=== PATIENT | female | born 1970 | race Caucasian/White ===

== ENCOUNTER 2024-01-23 19:41 | Emergency (ER) | payer OTHER ==
[2024-01-23] MEDS ORDERED: ONDANSETRON 4 MG/2 ML VIAL ONE (21:09)
[2024-01-23] MEDS ORDERED: NA CHLORIDE 0.9% 1,000 ML ONE ×2 (21:10→23:23)
[2024-01-23 21:31] LABS: Absolute Basophils 0.1 K/uL (0-0.5); Absolute Lymphocytes (CBC) 1.9 K/uL (0.7-4.9); Absolute Monocytes 1.1 K/uL (0.1-1.3); Absolute Neutrophil 7.8 K/uL (1.8-8.0); Basophils % 0.5 % (0-1.3); Eosinophils % 0.2 % (0-4.4); Hemoglobin 15.7 g/dL (12.0-15.0); Lymphocytes % 17.8 % (15.3-44.8); MCH 32.9 pg (27.0-35.0); MCHC 34.9 g/dL (32.0-36.0); MCV 94.1 fL (80-100); MPV 9.3 fL (7.6-11.3); Monocytes % 10.1 % (3.3-12.3); Neutrophils % 71.4 % (41.7-73.7); Platelets 308 thou/uL (152-406); RBC Red Blood Cell Count 4.78 M/uL (3.86-4.86); Red Cell Distribution Width 12.5 % (12.1-15.2)
[2024-01-23 22:02] LABS: Albumin 3.9 g/dL (3.4-5.0); Albumin/Globulin Ratio 1.1 (1.1-1.8); Bilirubin Total 0.9 mg/dL (0.2-1.0); Globulin 3.5 g/dL (2.3-3.5); Protein, Total 7.4 g/dL (6.4-8.2)
[2024-01-23] MEDS ORDERED: PROMETHAZINE INJ 25 MG/ML AMP ONE (22:17)
[2024-01-23] MEDS ORDERED: KCL 20 MEQ/100 mL IVPB 100 ML IV ONE (23:23)
[2024-01-24 01:00] LABS: Specific Gravity 1.016 (1.005-1.030)
[2024-01-24 01:05] LABS: Specific Gravity 1.016 (1.005-1.030); Urine Bacteria 20-50 /HPF (<20); Urine Bilirubin NEGATIVE (Negative); Urine Blood 3+ (OVER) (Negative); Urine Clarity Extremely Turbid (Clear); Urine Color Light-Yellow (Yellow); Urine Culture Reflex Order NOT NEEDED; Urine Glucose NEGATIVE (Negative); Urine Ketones 2+ (Negative); Urine Microscopic Reflex YN ORDER UMIC; Urine Mucus 4+ /HPF (None Seen); Urine Nitrite NEGATIVE (Negative); Urine Protein NEGATIVE (Negative); Urine RBC >50 /HPF (None Seen); Urine Urobilinogen Normal (Normal); Urine pH 5.5 (5.0-7.0)
--- NOTE | 2024-01-24 01:30 | EDPHYS ---
Physician Documentation [facility] Name: Madelyn Sellers Age: 53 yrs Sex: Female : 1970 Arrival Date: 01/23/2024 Time: 19:41 Bed 13 Private MD: ED Physician Carol Valera HPI: 01/22 21:59 This 53 yrs old Female presents to ER via Ambulatory with complaints of Abdominal Pain, sp3 Vomiting. 21:59 53-year-old female with no significant past medical history presents with chief sp3 complaint of vomiting and epigastric abdominal pain for 4 days. Patient states her p.o. intake has been significantly less. She was seen at [facility] ER yesterday where they performed laboratory values and a CT scan of the abdomen pelvis which demonstrated no significant findings. Patient was discharged home on dicyclomine and ondansetron ODT with diagnosis gastroenteritis. Her symptoms are not improving and she feels like she is getting worse with inability to tolerate p.o. and decreased urine output. She is concerned about dehydration and presents here for further evaluation and treatment. Review of systems negative for fever, URI symptoms, chest pain, shortness of breath, back pain, rash, syncope, near syncope, or any other signs or symptoms on ROS at this time.. 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 - Infectious Disease History:: Denies. - Social history:: Smoking status: Patient/guardian denies using tobacco, Patient uses alcohol, but reports only rare drinking. ROS: 22:01 Constitutional: Negative for fever, chills, and weight loss, Eyes: Negative for injury, sp3 pain, redness, and discharge, Neck: Negative for injury, pain, and swelling, Cardiovascular: Negative for chest pain, palpitations, and edema, Respiratory: Negative for shortness of breath, cough, wheezing, and pleuritic chest pain, Back: Negative for injury and pain, MS/Extremity: Negative for injury and deformity, Skin: Negative for injury, rash, and discoloration, Neuro: Negative for headache, weakness, numbness, tingling, and seizure, Psych: Negative for depression, anxiety, suicide ideation, homicidal ideation, and hallucinations, Allergy/Immunology: Negative for hives, rash, and allergies, Endocrine: Negative for neck swelling, polydipsia, polyuria, polyphagia, and marked weight changes, 22:01 All other systems are negative, Exam: 22:01 Constitutional: This is a well developed, well nourished patient who is awake, alert, sp3 and in no acute distress. Head/Face: Normocephalic, atraumatic. Eyes: Pupils equal round and reactive to light, extra-ocular motions intact. Lids and lashes normal. Conjunctiva and sclera are non-icteric and not injected. Cornea within normal limits. Periorbital areas with no swelling, redness, or edema. Neck: Trachea midline, no thyromegaly or masses palpated, and no cervical lymphadenopathy. Supple, full range of motion without nuchal rigidity, or vertebral point tenderness. No Meningismus. Chest/axilla: Normal chest wall appearance and motion. Nontender with no deformity. No lesions are appreciated. Cardiovascular: Regular rate and rhythm with a normal S1 and S2. No gallops, murmurs, or rubs. Normal PMI, no JVD. No pulse deficits. Respiratory: Lungs have equal breath sounds bilaterally, clear to auscultation and percussion. No rales, rhonchi or wheezes noted. No increased work of breathing, no retractions or nasal flaring. Back: No spinal tenderness. No costovertebral tenderness. Full range of motion. Skin: Warm, dry with normal turgor. Normal color with no rashes, no lesions, and no evidence of cellulitis. MS/ Extremity: Pulses equal, no cyanosis. Neurovascular intact. Full, normal range of motion. Neuro: Awake and alert, GCS 15, oriented to person, place, time, and situation. Cranial nerves II-XII grossly intact. Motor strength 5/5 in all extremities. Sensory grossly intact. Cerebellar exam normal. Normal gait. Psych: Awake, alert, with orientation to person, place and time. Behavior, mood, and affect are within normal limits. 22:01 ENT: Dry mucous membranes noted. 22:01 Abdomen/GI: Mild diffuse tenderness to palpation without peritoneal signs, rebound or guarding. Symptoms are more nausea and vomiting and abdominal pain on exam., Vital Signs: 19:59 Weight 128.37 kg; Height 5 ft. 8 in. ; Pain 10/10; tm6 19:59 BP 130 / 84; Pulse 69; Resp 19; Pulse Ox 98% on R/A; MAP 98 mmHg; tm6 21:21 Temp 98.7(O); jb4 23:00 BP 136 / 62; Pulse 59; Resp 16; Pulse Ox 100% ; jb4 10 00:00 BP 131 / 73; Pulse 63; Resp 16; Pulse Ox 97% on R/A; jb4 02:56 BP 129 / 69; Pulse 65; Resp 18; Temp 98(O); Pulse Ox 94% on R/A; rg5 01/22 19:59 Body Mass Index 43.03 (128.37 kg, 172.72 cm) tm6 01/22 19:59 Pain Scale: Adult 6 MDM: 01/22 20:42 Patient medically screened. 3 22:01 Data reviewed: vital signs, nurses notes, old medical records, lab test result(s). ED 3 course: 53-year-old female with gastroenteritis with second ER visit for her symptoms. CT scan yesterday was negative. Today we will administer supportive care with IV fluids and antiemetics including more Zofran as well as Phenergan IV. Repeat laboratory values pending including lactate. I have offered potential transfer to [place] given no admission capability here due to capacity. We will elect to see how today's medications make patient feel as well as recheck her labs. Disposition pending workup and patient course.. 01/23 01:28 ED course: Patient continues to have intractable vomiting. We will transfer her to [address] for further workup. Compazine will also be given here in the ED.. 01/22 20:43 Order name: CBC with Diff; Complete Time: 22:57 3 01/22 20:43 Order name: CMP; Complete Time: 22:57 3 01/22 20:43 Order name: Lipase; Complete Time: 22:57 3 01/22 20:43 Order name: Urinalysis w/ reflexes; Complete Time: 01:06 3 01/22 20:43 Order name: Test, Urine; Complete Time: 01:06 sp3 01/22 21:50 Order name: Lactate w/ 2H reflex if indic.; Complete Time: 00:33 sp3 01/22 20:43 Order name: IV Saline Lock; Complete Time: 21:15 sp3 01/22 20:43 Order name: Labs collected and sent; Complete Time: 21:15 sp3 01/22 20:43 Order name: Vital Signs; Complete Time: 21:19 sp3 01/22 20:43 Order name: Misc. Order: Temperature; Complete Time: 21:19 sp3 01/22 22:58 Order name: PO challenge; Complete Time: 23:29 sp3 Administered Medications: 01/22 21:20 Drug: NS 0.9% IV 1000 ml IV at 1 bolus Per protocol; 1000 mL bolus Route: IV; Rate: 1 jb4 bolus; Site: right antecubital; 01/23 02:00 Follow up: IV Status: Completed infusion; IV Intake: 1000ml rg5 01/22 21:20 Drug: Ondansetron IVP 4 mg IVP once; over 2 minutes Route: IVP; Site: right antecubital;jb4 01/23 03:00 Follow up: Response: No adverse reaction [facility] 01/22 22:23 Drug: Promethazine IVP 12.5 mg IVP once Route: IVP; Site: right antecubital; jb4 01/23 03:00 Follow up: Response: No adverse reaction 5 01/22 23:30 Drug: NS 0.9% IV 1000 ml IV at 1 bolus Per protocol; 1000 mL bolus Route: IV; Rate: 1 jb4 bolus; Site: right antecubital; 01/23 02:00 Follow up: IV Status: Completed infusion; IV Intake: 1000ml rg5 01/22 23:30 Not Given (Other Intervention Used): potassiumeffervescent tablet 50 meq PO once; jb4 dissolve in 4 ounces of water or juice 23:30 Drug: Potassium Chloride IV 20 mEq IV at calculated rate once; administer over 1-2 jb4 hours Route: IV; Rate: calculated rate; Site: right antecubital; 01/23 02:00 Follow up: IV Status: Completed infusion; IV Intake: 100ml rg5 01:34 Not Given (Not in pyxis): [id number] mg IVP once sp3 01:37 Drug: metoCLOPramide IVP 10 mg IVP once; over 1 to 2 minutes Route: IVP; Site: right jb4 antecubital; 03:00 Follow up: Response: No adverse reaction rg5 Disposition Summary: 01/24/24 01:30 Transfer Ordered Notes: Transfer Location: [facility] sp3 Reason: Higher level of care sp3 Condition: Stable sp3 Problem: an acute exacerbation sp3 Symptoms: have worsened sp3 Accepting Physician: [facility] Hospitalist(01/24/24 03:29) rg5 Diagnosis - Intractable vomiting, dehydration sp3 Forms: - Medication Reconciliation Form sp3 - SBAR form sp3 Signatures: Dispatcher [employer] EDMS Cordell John RN RN jb4 Carol Valera MD MD sp3 Elif Osman RN RN tm6 Herman Marshall RN RN rg5 Corrections: (The following items were deleted from the chart) 01/22 20:44 20:44 CBC+H.LAB.BRZ ordered. EDMS EDMS 20:44 20:44 COMPREHENSIVE METABOLIC PANEL+C.LAB.BRZ ordered. EDMS EDMS 20:44 20:44 LIPASE+C.LAB.BRZ ordered. EDMS EDMS 20:44 20:44 Urinalysis+U.LAB.BRZ ordered. EDMS EDMS 20:44 20:44 Test, Urine+UC.LAB.BRZ ordered. EDMS EDMS 21:55 20:44 Abdomen Pelvis W Con+CT.RAD.BRZ ordered. EDMS EDMS 01/23 03:29 01:30 [facility] Hospitalist sp3 rg5
--- NOTE | 2024-01-24 01:30 | ER ---
Nurse's Notes [facility] Name: Madelyn Sellers Age: 53 yrs Sex: Female : 1970 Arrival Date: 01/23/2024 Time: 19:41 Bed 13 Private MD: Diagnosis: Intractable vomiting, dehydration Presentation: 01/22 19:59 Chief complaint: Patient states: Monday started having nausea and vomiting, tm6 epigastric pain. Went to [facility] on Monday, they said I had gastritis. They gave me zofran and dicyclomine. Zofran has not helped, I keep throwing up. Not been able to eat or keep anything down. I also feel like I'm having heart palpitations. Coronavirus screen: Client denies travel out of the [place] in the last 14 days. Ebola Screen: Patient negative for fever greater than or equal to 101.5 degrees Fahrenheit, and additional compatible Ebola Virus Disease symptoms Patient denies exposure to infectious person. Patient denies travel to an Ebola-affected area in the 21 days before illness onset. No symptoms or risks identified at this time. Initial Sepsis Screen: Does the patient meet any 2 criteria? No. Patient's initial sepsis screen is negative. Does the patient have a suspected source of infection? No. Patient's initial sepsis screen is negative. Risk Assessment: Do you want to hurt yourself or someone else? Patient reports no desire to harm self or others. Onset of symptoms was January 20, 2024. 19:59 Acuity: ZA 3 tm6 19:59 Method Of Arrival: Ambulatory tm6 Triage Assessment: 20:02 General: Appears uncomfortable, Behavior is cooperative. Pain: Complains of pain in tm6 epigastric area Pain currently is 10 out of 10 on a pain scale. Pain began 2-3 days ago. EENT: No signs and/or symptoms were reported regarding the EENT system. Neuro: Level of Consciousness is awake, alert, obeys commands, Oriented to person, place, time, situation. Cardiovascular: Patient's skin is warm and dry. Cardiovascular: Reports palpitations. Respiratory: Airway is patent Respiratory effort is even, unlabored, Respiratory pattern is regular, symmetrical. GI: Abdomen is round Reports upper abdominal pain, nausea, vomiting, since Monday. : No signs and/or symptoms were reported regarding the genitourinary system. Derm: No signs and/or symptoms reported regarding the dermatologic system. Musculoskeletal: No signs and/or symptoms reported regarding the musculoskeletal system. 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 - Infectious Disease History:: Denies. - Social history:: Smoking status: Patient/guardian denies using tobacco, Patient uses alcohol, but reports only rare drinking. Screenin:21 [facility] ED Fall Risk Assessment (Adult) History of falling in the last 3 months, jb4 including since admission No falls in past 3 months (0 pts) Confusion or Disorientation No (0 pts) Intoxicated or Sedated No (0 pts) Impaired Gait No (0 pts) Mobility Assist Device Used No (0 pt) Altered Elimination No (0 pt) Score/Fall Risk Level 0 - 2 = Low Risk Oriented to surroundings, Maintained a safe environment. 01/23 02:59 Abuse screen: Denies threats or abuse. Nutritional screening: No deficits noted. rg5 Tuberculosis screening: No symptoms or risk factors identified. Assessment: 01/22 21:21 General: Appears in no apparent distress. comfortable, Behavior is calm, cooperative, jb4 appropriate for age. Pain: Complains of pain in abdomen Pain does not radiate. Pain currently is 8 out of 10 on a pain scale. Neuro: Level of Consciousness is awake, alert, obeys commands, Oriented to person, place, time, situation. Cardiovascular: Patient's skin is warm and dry. Respiratory: Airway is patent. GI: Abdomen is non-distended, obese, Reports nausea, vomiting. : No signs and/or symptoms were reported regarding the genitourinary system. EENT: No signs and/or symptoms were reported regarding the EENT system. Derm: Skin is intact, Skin is pink, warm \T\ dry. Musculoskeletal: Circulation, motion, and sensation intact. Range of motion: intact in all extremities. 22:30 Reassessment: Patient appears in no apparent distress at this time. Patient and/or jb4 family updated on plan of care and expected duration. Pain level reassessed. Patient is alert, oriented x 3, equal unlabored respirations, skin warm/dry/pink. 23:30 Reassessment: Patient appears in no apparent distress at this time. Patient and/or jb4 family updated on plan of care and expected duration. Pain level reassessed. Patient is alert, oriented x 3, equal unlabored respirations, skin warm/dry/pink. 01/23 00:50 Reassessment: Patient appears in no apparent distress at this time. Patient and/or jb4 family updated on plan of care and expected duration. Pain level reassessed. Patient is alert, oriented x 3, equal unlabored respirations, skin warm/dry/pink. Pt reports still feeling nauseous. Patient states feeling better. 02:56 Reassessment: Patient and/or family updated on plan of care and expected duration. Pain rg5 level reassessed. Patient is alert, oriented x 3, equal unlabored respirations, skin warm/dry/pink. Patient states feeling better. Vital Signs: 01/22 19:59 Weight 128.37 kg; Height 5 ft. 8 in. ; Pain 10; tm6 19:59 BP 130 / 84; Pulse 69; Resp 19; Pulse Ox 98% on R/A; MAP 98 mmHg; tm6 21:21 Temp 98.7(O); jb4 23:00 BP 136 / 62; Pulse 59; Resp 16; Pulse Ox 100% ; jb4 01/23 00:00 BP 131 / 73; Pulse 63; Resp 16; Pulse Ox 97% on R/A; jb4 02:56 BP 129 / 69; Pulse 65; Resp 18; Temp 98(O); Pulse Ox 94% on R/A; rg5 01/22 19:59 Body Mass Index 43.03 (128.37 kg, 172.72 cm) tm6 01/22 19:59 Pain Scale: Adult tm6 ED Course: 01/22 19:44 Patient arrived in ED. mg5 20:02 Triage completed. tm6 20:02 Arm band placed on left wrist. tm6 20:40 Carol Valera MD is Attending Physician. sp3 21:15 CBC with Diff Sent. vk 21:15 CMP Sent. vk 21:15 Lipase Sent. vk 21:15 Initial lab(s) drawn, by me, sent to lab. Inserted saline lock: 22 gauge in right vk antecubital area, using aseptic technique. Blood collected. Flushed with 10 mL NS. 01/23 02:55 Herman Marshall, RN is Primary Nurse. rg5 02:59 Resting quietly. Appears to be sleeping. transfer approval from receiving facility. rg5 02:59 Patient has correct armband on for positive identification. Call light in reach. Side rg5 rails up X 1. 02:59 No provider procedures requiring assistance completed. rg5 03:14 Provided Education on: POST ER CARE. rg5 03:24 Patient transferred, IV remains in place. intact, No redness/swelling at site. rg5 05:56 initiated transfer with wendy at [facility] \T\[id number]. Pt was accepted [facility] bed 423. number for nurse to nurse report [phone]. AOC given by Wendy Goff \T\ [id number]. Accepting Dr. Evelyn Cottrell \T\[id number] [facility] to transfer pt. Administered Medications: 01/22 21:20 Drug: NS 0.9% IV 1000 ml IV at 1 bolus Per protocol; 1000 mL bolus Route: IV; Rate: 1 jb4 bolus; Site: right antecubital; 01/23 02:00 Follow up: IV Status: Completed infusion; IV Intake: 1000ml [facility] 01/22 21:20 Drug: Ondansetron IVP 4 mg IVP once; over 2 minutes Route: IVP; Site: right antecubital;jb4 01/23 03:00 Follow up: Response: No adverse reaction [facility] 01/22 22:23 Drug: Promethazine IVP 12.5 mg IVP once Route: IVP; Site: right antecubital; jb4 01/23 03:00 Follow up: Response: No adverse reaction [facility] 01/22 23:30 Drug: NS 0.9% IV 1000 ml IV at 1 bolus Per protocol; 1000 mL bolus Route: IV; Rate: 1 jb4 bolus; Site: right antecubital; 01/23 02:00 Follow up: IV Status: Completed infusion; IV Intake: 1000ml [facility] 01/22 23:30 Not Given (Other Intervention Used): potassiumeffervescent tablet 50 meq PO once; jb4 dissolve in 4 ounces of water or juice 23:30 Drug: Potassium Chloride IV 20 mEq IV at calculated rate once; administer over 1-2 jb4 hours Route: IV; Rate: calculated rate; Site: right antecubital; 01/23 02:00 Follow up: IV Status: Completed infusion; IV Intake: 100ml rg5 01:34 Not Given (Not in pyxis): [id number] mg IVP once sp3 01:37 Drug: metoCLOPramide IVP 10 mg IVP once; over 1 to 2 minutes Route: IVP; Site: right jb4 antecubital; 03:00 Follow up: Response: No adverse reaction rg5 Medication: 01/22 21:21 VIS not applicable for this client. jb4 Intake: 01/23 02:00 IV: 100ml; Total: 100ml. rg5 02:00 IV: 1000ml; Total: 1100ml. rg5 02:00 IV: 1000ml; Total: 2100ml. rg5 Outcome: 01:30 ER care complete, transfer ordered by sp3 03:23 Transferred by ground EMS to [facility], [facility], 5 03:23 Condition: stable 03:23 Instructed on the need for transfer, 03:29 Patient left the ED. rg5 Signatures: Cordell John RN RN jb4 Carol Valera MD MD sp3 Herlinda Martinez mg5 Darlin Raymundo [facility] Elif Osman RN RN tm6 Molly Parnell Rommel RN RN rg5
[2024-01-24] MEDS ORDERED: METOCLOPRAMIDE 10 MG/2mL INJ ONE (01:35)
[2024-01-24 18:28] VITALS: BP 129/69; TEMP 98; O2SAT 94
== END 2024-01-24 03:29 | disposition short-term general hospital (02) ==
LOC: ER 19:41
DX: E86.0 Dehydration (principal); R11.10 Vomiting, unspecified; Z91.09 Other allergy status, other than to drugs and biological substances; Z91.040 Latex allergy status
CPT/HCPCS: 96365; 96361; 85025; 81001; 36415; 81025; 83605; 83690; 80053; 96375; 99285; 96366; J2550; J3480; J2765; J2405; J7030 ×2